=== PATIENT | female | born 1985 | race Caucasian/White ===

== ENCOUNTER 2020-03-30 06:16 | Inpatient (IN) ==
[2020-03-30] MEDS ORDERED: OXYTOCIN/0.9 % SODIUM CHLORIDE 30 UNITS/500 ML BAG IV ONE (06:28)
[2020-03-30] MEDS ORDERED: ONDANSETRON 4 MG TAB.RAPDIS PO PRN (06:28)
[2020-03-30] MEDS ORDERED: MISOPROSTOL 100 MCG TABLET VG PRN (06:28)
[2020-03-30] MEDS: RINGER'S SOLUTION,LACTATED 1,000 ML IV ONE ×2 (08:26→16:30)
--- NOTE | 2020-03-30 09:24 | HP ---
Chief Complaint - Chief Complaint Date of Service: 03/30/20 Time of Service: 08:45 Chief Complaint: medical induction of labor History of Present Illness: 34 yo at 39.1 weeks admitted for induction of labor due to GDM and AMA. This complicated by anemia, AMA, anxiety, Covid-19 (12/02/19), and recurrent UTIs. Rh positive Rubella immune GBS negative Medical History (Last Reviewed 03/30/20 @ 09:16 by Cristobal Carnes DO) Anemia affecting (Acute) Onset Date: 01/13/20 Urethral hypermobility (Acute) Urinary frequency (Acute) Urinary, incontinence, stress female (Acute) Encounter for well woman exam with abnormal findings (Acute) Vaginal discharge (Acute) Irregular menses (Acute) Binge eating (Acute) BMI 30.0-30.9,adult (Acute) Abnormal weight gain (Acute) COVID-19 Onset Date: 12/02/19 Gestational diabetes mellitus (GDM) Onset Date: ~01/17/20 Anxiety Onset Date: ~2017 Kidney infection Onset Date: ~11/2019 Heart palpitations Onset Date: ~12/13/18 Surgical History: Surgical History (Last Reviewed 03/30/20 @ 09:16 by Cristobal Carnes DO) [place] teeth removed Family History: Family History (Last Reviewed 03/30/20 @ 09:16 by Cristobal Carnes DO) Mother Diabetes Hypertension Grandfather Diabetes Maternal Grandmother , Maternal Lung cancer Aunt Colon cancer Maternal Social History: (Last Reviewed 03/30/20 @ 09:16 by Crsitobal Carnes DO) Social History: Marital status: household members: spouse, children current occupational status: employed current occupation: [employer] current occupational exposures/hazards: No Service: No Tobacco: Smoking Status: Never smoker Alcohol: alcohol intake: current details: Rare- none with Substance Use: substance use type: does not use Dietary Habits: caffeine: No Exercise: Physical activity type: none Personal Safety: victim of physical abuse: No victim of emotional abuse: No Review Of Systems (GEN) - Review of Systems Generalized/Overall Review: Present: No Symptoms Reported EENTM: Present: No Symptoms Reported Respiratory: Present: No Symptoms Reported Cardiac: Present: No Symptoms Reported Abdominal: Present: Other - contractions Genitourinary: Present: No Symptoms Reported Musculoskeletal: Present: No Symptoms Reported Neurological: Present: No Symptoms Reported Skin: Present: No Symptoms Reported Endocrine: Present: No Symptoms Reported Allergies/Adverse Reactions: Allergies Allergy/AdvReac Type Severity Reaction Status Date / Time No Known Allergies Allergy Verified 03/30/20 06:27 Home Medications: HOME MEDICATIONS Vits96/Iron Fum/Folic [ S] 1 tab PO DAILY 11/12/14 [Last Taken 03/30/20] ferrous sulfate 325 mg (65 mg iron) tablet 325 mg PO DAILY #30 tab 01/13/20 [Last Taken 03/29/20] blood sugar diagnostic See Rx Instructions .ROUTE .MEDSUPPLY #100 ea 01/17/20 [Last Taken 03/30/20 06:28] blood-glucose meter See Rx Instructions .ROUTE .MEDSUPPLY #1 ea 01/17/20 [Last Taken 03/30/20] lancets 28 gauge See Rx Instructions .ROUTE .MEDSUPPLY #100 ea 01/17/20 [Last Taken 03/30/20] cefuroxime axetil 250 mg tablet 250 mg PO QHS 30 Days #30 tab 02/13/20 [Last Taken 03/29/20] breast pump See Rx Instructions .ROUTE .MEDSUPPLY #1 ea 03/25/20 [Last Taken Unknown] Exam - Exam Vital Signs: Vital Signs - Last Taken Temp 36.1 C 03/30/20 08:37 Pulse 100 03/30/20 08:37 Resp 18 03/30/20 08:37 BP 109/73 03/30/20 08:37 Pulse Ox 99 03/30/20 08:37 Constitutional: Present: Alert, Oriented x3, Cooperative, No distress ENT Exam: Present: hearing grossly normal Neck: Present: trachea midline Breasts: Present: Exam deferred Respiratory: Present: lungs clear, no respiratory distress Cardiovascular/Chest: Present: normal peripheral pulses, regular rate, rhythm, no edema Abdomen: Present: soft, nontender, no rebound tenderness, other - gravid /Rectal: Present: Other - Cervix - 1/25/-2 Extremity: Present: no pedal edema, no calf tenderness Skin Exam: Present: normal color, warm/dry, skin rash Neurologic: Present: alert, normal mood/affect, oriented x 3 Appearance: Present: appropriate appearance, appropriate insight Eye contact: Present: cooperative, good eye contact Thoughts: Present: normal thought pattern, normal mood /affect Assessment/Plan - Assessment/Plan (1) Gestational diabetes Assessment: Admit for pitocin induction of labor (cytotec not used since patient zack too frequently - has been doing this for over 1 week without cervical change). Insulin drip and glucose monitoring per protocol. Problem: Acute Qualifiers: Gestational diabetes mellitus control: diet-controlled (2) Advanced maternal age (AMA) in Problem: Chronic (3) Anxiety Problem: Chronic (4) Anemia Problem: Acute Qualifiers: Anemia type: iron deficiency Iron deficiency anemia type: inadequate dietary iron intake Qualified Code(s): D50.8 - Other iron deficiency anemias (5) COVID-19 affecting in third trimester Problem: Resolved (6) BMI 34.0-34.9,adult Problem: Chronic
[2020-03-30] MEDS: DEXTROSE 5%-LACTATED RINGERS 1,000 ML IV PRN ×2 (10:05→17:29)
--- NOTE | 2020-03-30 12:41 | PN ---
Progess Note - Interim Date: 03/30/20 Time: 12:37 Narrative: 03/30/20 12:37 Patient rating her contractions as mild to moderate Vital signs stable. Blood sugar 93 at 1045. Pitocin at 2 mu/min. FHT: 130 baseline, reassuring contractions q 2-3 min Cervix: 1/40/-2, cervical Garcia bulb placed and inflated with 60 mL's of normal saline Impression: Intrauterine at 39 1/7 weeks induction of labor for gestational diabetes and advanced maternal age. Plan: Continue present plan 03/30/20 12:41
--- NOTE | 2020-03-30 16:39 | PN ---
Progess Note - Interim Date: 03/30/20 Time: 16:33 Narrative: 03/30/20 16:33 Patient rating contractions as mild to moderate Vital signs stable. Blood sugars ranging in the 60s to 90s. Pitocin at 1 mu/min. FHT: 120 baseline, reassuring contractions q 1-3 min Cervix: 5-6/80/-2, AROM-clear Impression: Intrauterine at 39-1/7 weeks induction of labor for gestational diabetes and advanced maternal age progressing well. Plan: Continue present plan
[2020-03-30] MEDS ORDERED: BUPIVACAINE HCL/0.9 % NACL/PF 250 ML EP PRN (16:56)
[2020-03-30] MEDS ORDERED: ONDANSETRON HCL/PF 2 MG/ML VIAL IV PRN ×2 (16:56→21:03)
[2020-03-30] MEDS ORDERED: NALOXONE HCL 1 MG/1 ML SYRG IV PRN ×2 (16:56→21:03)
[2020-03-30] MEDS ORDERED: fentaNYL CITRATE/PF 50 MCG/ML AMPUL IT SCH ×2 (17:00→21:15)
--- NOTE | 2020-03-30 17:21 | ANES ---
Anesthesia Pre Procedure Eval Vitals/Labs: Last Vital Signs Temp 36.1 C 03/30/20 08:37 Pulse 100 03/30/20 08:37 Resp 18 03/30/20 08:37 BP 109/73 03/30/20 08:37 Pulse Ox 99 03/30/20 08:37 HOME MEDICATIONS RX: Vits96/Iron Fum/Folic [ S] 1 tab PO DAILY 11/12/14 [Last Taken 03/30/20] ferrous sulfate 325 mg (65 mg iron) tablet 325 mg PO DAILY #30 tab 01/13/20 [Last Taken 03/29/20] blood sugar diagnostic See Rx Instructions .ROUTE .MEDSUPPLY #100 ea 01/17/20 [Last Taken 03/30/20 06:28] blood-glucose meter See Rx Instructions .ROUTE .MEDSUPPLY #1 ea 01/17/20 [Last Taken 03/30/20] lancets 28 gauge See Rx Instructions .ROUTE .MEDSUPPLY #100 ea 01/17/20 [Last Taken 03/30/20] cefuroxime axetil 250 mg tablet 250 mg PO QHS 30 Days #30 tab 02/13/20 [Last Taken 03/29/20] breast pump See Rx Instructions .ROUTE .MEDSUPPLY #1 ea 03/25/20 [Last Taken Unknown] Allergies/Adverse Reactions: Allergies Allergy/AdvReac Type Severity Reaction Status Date / Time No Known Allergies Allergy Verified 03/30/20 06:27 - Planned Procedure Planned Procedure: medical induction Medication List Reviewed:: Yes Allergies Verified: Yes Medical History (Last Reviewed 03/30/20 @ 17:20 by Mike Weber CRNA) Anemia affecting (Acute) Onset Date: 01/13/20 Urethral hypermobility (Acute) Urinary frequency (Acute) Urinary, incontinence, stress female (Acute) Encounter for well woman exam with abnormal findings (Acute) Vaginal discharge (Acute) Irregular menses (Acute) Binge eating (Acute) BMI 30.0-30.9,adult (Acute) Abnormal weight gain (Acute) COVID-19 Onset Date: 12/02/19 Gestational diabetes mellitus (GDM) Onset Date: ~01/17/20 Anxiety Onset Date: ~2017 Kidney infection Onset Date: ~11/2019 Heart palpitations Onset Date: ~12/13/18 Surgical History (Last Reviewed 03/30/20 @ 17:20 by Mike Weber CRNA) [place] teeth removed Family History (Last Reviewed 03/30/20 @ 17:20 by Mike Weber CRNA) Mother Diabetes Hypertension Grandfather Diabetes Maternal Grandmother , Maternal Lung cancer Aunt Colon cancer Maternal - Family Anesthesia History Family History:: no untoward family reactions to anesthesia, no familial bleeding tendencies, no family history of clotting disorders, no family history of premature - Airway/Neck/Teeth Within Normal Limits:: Yes Teeth Condition: intact Neck Exam: full range of motion Mallampatti Score: 2 Thyromental (T-M) distance: > 6 cm Mandibulo Hyoid distance: > 3 cm - Respiratory Respiratory Physical: lungs clear Sleep Apnea currently treated: No Sleep Apnea by current assessment: No - Cardiovascular Tolerate Activity: Fair Heart Sounds: S1 & S2, Regular - Gastrointestinal NPO since: pm - Anesthesia Assessment and Plan ASA Class: PS, II, E Anesthesia Type Plan: Epidural - CSE for labor analgesia.
--- NOTE | 2020-03-30 17:47 | ANES ---
Post Anesthesia Discharge - Transfer of Care Transfer of Care handoff given to nurse: Yes - Discharge from PACU Discharge from PACU when meets criteria: Yes - Comfortable post CSE.
--- NOTE | 2020-03-30 17:49 | ANES ---
Anesthesia Procedure Note Procedure Note: ANESTHESIA PROCEDURE NOTE Date of Procedure: 03/30/2020 Time of procedure: 1720. Performed by: JEFFREY Brito CRNA, MSN Country Singer: Luna Drew RN. Preprocedure diagnosis: Active labor, labor pain. Post procedure diagnosis: Same. Procedure:Epidural for labor analgesia L3-4. Indications: Labor pain. Findings: See below. Details of the procedure: The patient was placed on the side of the bed in sitting positionand prepped with DuraPrep then draped in a sterile fashion. Lidocaine 1% was infiltrated to the skin and subcutaneous tissues at the level of the L3-4 interspace. An 18-gauge Touhy needle was used to approach the epidural space with loss of resistance technique. Once loss of resistance was achieved a 27-gauge spinal needle was passed through the epidural needle and CSF was contacted. After CSF returned, 20 mcg of fentanyl was injected in the spinal needle was removed the epidural catheter was then threaded approximately 4 cm in the epidural needle was removed. The catheter was taped in place and after careful aspiration 3 mL of 1.5% lidocaine with 1-200,000 epinephrine was injected without change in maternal heart rate or sensorium. . EBL: Minimal. Fluids: N/A. Specimen: N/A. Post procedure condition: The patient tolerated the procedure well with good relief. No complications were noted. Thank you for this consultation. Mike Weber CRNA, ARNP, MSN
--- NOTE | 2020-03-30 17:53 | ANES ---
Post Anesthesia Assessment - Vital Signs Vitals: Last Vital Signs Temp 36.1 C 03/30/20 08:37 Pulse 100 03/30/20 08:37 Resp 18 03/30/20 08:37 BP 109/73 03/30/20 08:37 Pulse Ox 99 03/30/20 08:37 Airway Patency: Normal - Mental Status Level Of Consciousness: Awake, Alert, Appropriate - Pain Level Pain Score: 0 - N/V Assessment Nausea/Vomiting Presence: None Dehydration:: No
[2020-03-30] MEDS ORDERED: BUPIVACAINE HCL/PF 30 ML VIAL ONE (21:16)
[2020-03-30] MEDS ORDERED: BUPIVACAINE HCL/PF 30 ML VIAL EP SCH (21:45)
[2020-03-31] MEDS ORDERED: IBUPROFEN 800 MG TABLET ONE (01:11)
[2020-03-31] MEDS ORDERED: IBUPROFEN 800 MG TABLET PO PRN (01:12)
[2020-03-31] MEDS ORDERED: SENNOSIDES 8.6 MG TABLET PO PRN (01:12)
[2020-03-31] MEDS ORDERED: BENZOCAINE/MENTHOL 81 SPRAY CAN TP PRN (01:12)
[2020-03-31] MEDS ORDERED: HYDROCORTISONE 30 APPL TUBE TP PRN (01:12)
[2020-03-31] MEDS ORDERED: BISACODYL 10 MG SUPP.RECT RC PRN (01:12)
[2020-03-31] MEDS ORDERED: GLYCERIN/WITCH HAZEL LEAF 40 APPL BOX TP PRN (01:12)
[2020-03-31] MEDS ORDERED: OXYTOCIN/0.9 % SODIUM CHLORIDE 30 UNITS/500 ML BAG IV ONE (01:12)
[2020-03-31] MEDS ORDERED: NON-FORMULARY 1 DOSE DOSE (Breast Pump 0 UNIT) SCH (01:15)
--- NOTE | 2020-03-31 01:16 | OR ---
Operative Report - Dictated Report Narrative: Spontaneous vaginal delivery of vigorously crying viable female at 00 16 on 03/31/2020 with Apgars 8 and 9, weighing 3360 g in PAM position with left hand at face presentation. Cord clamping delayed approximately 1 minute Placenta delivered complete, intact, with three vessel cord Estimated blood loss: Less than 50 ml Anesthesia: Epidural Lacerations: Small first-degree vaginal laceration requiring no repair. History for History for Definition: * The number of deliveries resulting in a live the patient experienced prior to current hospitalization * The previous delivery of live twins or any live multiple gestation is considered one live event. *If primagravida or nulliparous is documented select zero for the number of previous live births. Live Events: Live Events: 3
[2020-03-31] MEDS: oxyCODONE HCL/ACETAMINOPHEN 1 TAB TABLET PO PRN ×5 (03:16→23:56)
[2020-03-31] MEDS: IBUPROFEN 800 MG TABLET PO PRN ×3 (07:20→20:35)
[2020-03-31] MEDS: FERROUS SULFATE 325 MG TABLET PO SCH ×2 (13:08→13:09)
[2020-03-31] MEDS: PRENATAL VITS96/IRON FUM/FOLIC 1 TAB TABLET PO SCH (13:09)
[2020-03-31] MEDS: DOCUSATE SODIUM 100 MG CAPSULE PO SCH ×2 (13:09→20:35)
[2020-04-01] MEDS ORDERED: DEXTROSE 4 GM/TAB BTL ONE (05:34)
[2020-04-01] MEDS: DEXTROSE 4 GM/TAB BTL PO STA (05:34)
[2020-04-01 05:56] LABS: Hematocrit 33.7 % (37.0-47.0); Hemoglobin 10.9 gm/dL (12.5-16.0); Mean Cell Volume 94.4 fl (78-100); Mean Corpuscular Hemoglobin 30.5 pg (27-31); Mean Corpuscular Hgb Conc 32.3 g/dl (32-36); Mean Platelet Volume 9.9 fl (8-12.5); Neutrophil # 11.7 K/mm3 (1.3-6.0); Neutrophil % 85.6 % (42-75.0); Platelet Count 114 K/mm3 (150-450); Red Blood Count 3.57 M/mm3 (4.2-5.4); Red Cell Distribution Width 13.5 % (11.5-14.0); White Blood Count 13.6 K/mm3 (4.0-10.5)
[2020-04-01 06:08] LABS: Albumin * 2.2 gm/dl (3.4-5.0); Anion Gap 11.2 mmol/L (6.8-13.8); BUN/Creatinine Ratio 8.5 (9.0-21.6); Bilirubin, Total 0.9 mg/dL (0.0-1.1); Ca. Corrected For Albumin 9.4 mg/dL (8.4-10.2); Calcium * 8.3 mg/dL (7.9-10.9); Carbon Dioxide 26.2 mmol/L (24-32.6); Potassium 4.4 mmol/L (3.4-4.6); Total Protein 5.6 gm/dL (6.2-8.2)
[2020-04-01 06:14] LABS: Random Urine Total Protein 72.6 mg/dL (0-12)
[2020-04-01] MEDS: IBUPROFEN 800 MG TABLET PO PRN ×3 (07:25→20:27)
[2020-04-01] MEDS: FERROUS SULFATE 325 MG TABLET PO SCH (10:00)
[2020-04-01] MEDS: DOCUSATE SODIUM 100 MG CAPSULE PO SCH ×2 (10:00→20:27)
[2020-04-01] MEDS: PRENATAL VITS96/IRON FUM/FOLIC 1 TAB TABLET PO SCH (10:00)
[2020-04-01] MEDS: oxyCODONE HCL/ACETAMINOPHEN 1 TAB TABLET PO PRN ×3 (10:05→20:27)
--- NOTE | 2020-04-01 15:18 | PN ---
Subjective - Date and Time Seen Date: 04/01/20 Time: 15:02 Subjective Narrative: Patient had a fasting hypoglycemic episode early this morning. Blood sugar was 54 and she was very symptomatic. Responded to glucose and high sugar snack. 1h PP BS was 96 and she has been assymptomatic since this am episode. Labs significant for plts 114k and Pr/Cr ratio of 359. Pt denies KIDD (had mild one at time of hypoglycemic episode), visual changes, epigastric pain, or edema. Objective - Review of Systems Generalized/Overall Review: Reports: No Symptoms Reported EENTM: Reports: No Symptoms Reported Respiratory: Reports: No Symptoms Reported Cardiac: Reports: No Symptoms Reported Abdominal: Reports: No Symptoms Reported Genitourinary Symptoms: Reports: No Symptoms Reported Musculoskeletal Complaints: Reports: No Symptoms Reported Neurological: Reports: No Symptoms Reported Skin: Reports: No Symptoms Reported Endocrine: Reports: No Symptoms Reported - Vitals Vitals: Last Vital Signs Temp 36.7 C 04/01/20 13:30 Pulse 108 H 04/01/20 13:30 Resp 20 04/01/20 13:30 BP 133/66 04/01/20 13:30 Pulse Ox 100 04/01/20 13:30 - Abnormal Lab Findings Abnormal Lab Findings: Abnormal Lab Results 04/01/20 04/01/20 04/01/20 Range/Units 05:42 05:55 05:55 WBC 13.6 H (4.0-10.5) K/mm3 RBC 3.57 L (4.2-5.4) M/mm3 Hgb 10.9 L (12.5-16.0) gm/dL Hct 33.7 L (37.0-47.0) % Plt Count 114 L (150-450) K/mm3 Immature Gran % (Auto) 0.60 H (0.001-0.429) % Immature Gran # (Auto) 0.08 H (0.000-0.0310) K/mm3 Neutrophils % 85.6 H (42-75.0) % Lymphocytes % 8.8 L (20-51) % Neutrophils # 11.7 H (1.3-6.0) K/mm3 Lymphocytes # 1.20 L (1.5-3.5) k/mm3 Chloride 108 H (97-106) mmol/L BUN/Creatinine Ratio 8.5 L (9.0-21.6) ALT 13 L (19-67) U/L Total Protein 5.6 L (6.2-8.2) gm/dL Albumin 2.2 L (3.4-5.0) gm/dl Ur Random Creatinine 202.1 H (60-200) mg/dL U Random Total Protein 72.6 H (0-12) mg/dL U [place] Prot/Creat Ratio 359 H (0-199) mg/gm - Exam Constitutional: Present: Alert, Oriented x3, Cooperative, No distress ENT Exam: Present: hearing grossly normal Breasts: Present: Exam deferred Respiratory: Present: no respiratory distress Cardiovascular/Chest: Present: tachycardia - mild 100-110 Abdomen: Present: soft, nontender, no rebound tenderness /Rectal: Present: Other - Uterus firm, NT. Lochia WNL Extremity: Present: no calf tenderness, lower extremity edema - 1+, other - DTR 3/4, no clonus Skin Exam: Present: normal color, warm/dry, no cyanosis Neurologic: Present: no motor/sensory deficits, alert, normal mood/affect, oriented x 3 Appearance: Present: appropriate appearance, appropriate insight Eye contact: Present: cooperative, good eye contact Thoughts: Present: normal thought pattern, normal mood /affect Cauti Physician Documentation - Urinary Catheter Management Urethral (Garcia) Date of Insertion: 03/30/20 Time of Insertion: 18:05 Assessment/Plan Plan Narrative: Unsure of etiology for hypoglycemic episode since patient is not on any hypoglycemic meds. Will get IM consult and continue routine PP management with close watch on BP and BS. - Problems/Diagnosis (1) Normal vaginal delivery Problem: Resolved (2) Hypoglycemic reaction Problem: Resolved (3) Gestational diabetes Problem: Acute Qualifiers: Gestational diabetes mellitus control: diet-controlled (4) Advanced maternal age (AMA) in Problem: Chronic (5) Anxiety Problem: Chronic (6) Anemia Problem: Acute Qualifiers: Anemia type: iron deficiency Iron deficiency anemia type: inadequate dietary iron intake Qualified Code(s): D50.8 - Other iron deficiency anemias (7) COVID-19 affecting in third trimester Problem: Resolved (8) BMI 34.0-34.9,adult Problem: Chronic
[2020-04-02 03:00] LABS: Hematocrit 31.6 % (37.0-47.0); Hemoglobin 10.3 gm/dL (12.5-16.0); Mean Cell Volume 92.7 fl (78-100); Mean Corpuscular Hemoglobin 30.2 pg (27-31); Mean Corpuscular Hgb Conc 32.6 g/dl (32-36); Mean Platelet Volume 10.1 fl (8-12.5); Neutrophil # 6.6 K/mm3 (1.3-6.0); Platelet Count 123 K/mm3 (150-450); Red Blood Count 3.41 M/mm3 (4.2-5.4); Red Cell Distribution Width 13.4 % (11.5-14.0); White Blood Count 8.6 K/mm3 (4.0-10.5)
[2020-04-02 03:13] LABS: Anion Gap 12.1 mmol/L (6.8-13.8); BUN/Creatinine Ratio 11.1 (9.0-21.6); Bilirubin, Total 0.7 mg/dL (0.0-1.1); Ca. Corrected For Albumin 9.6 mg/dL (8.4-10.2); Calcium * 8.3 mg/dL (7.9-10.9); Carbon Dioxide 25.6 mmol/L (24-32.6); Potassium 3.7 mmol/L (3.4-4.6); Total Protein 5.4 gm/dL (6.2-8.2)
[2020-04-02] MEDS: DEXTROSE 4 GM/TAB BTL PO STA (03:14)
[2020-04-02] MEDS: IBUPROFEN 800 MG TABLET PO PRN ×2 (03:45→10:44)
[2020-04-02] MEDS: oxyCODONE HCL/ACETAMINOPHEN 1 TAB TABLET PO PRN (03:46)
[2020-04-02 07:24] VITALS: BP 114/71
--- NOTE | 2020-04-02 09:15 | PN ---
Subjective - Date and Time Seen Date: 04/02/20 Time: 09:11 Objective - Vitals Vitals: Last Vital Signs Temp 36.3 C 04/02/20 07:23 Pulse 100 04/02/20 07:23 Resp 18 04/02/20 07:23 BP 114/71 04/02/20 07:23 Pulse Ox 98 04/02/20 07:23 Patient had another hypoglycemic episode around 2 AM which responded well to glucose tabs and sugary diet. Breast-feeding well. Lochia wnl abdomen - soft, nontender Uterus -firm, at umbilicus - 2 No calf tenderness Impression: day #2 - s/p spontaneous vaginal delivery. Gestational diabetes-resolved but now experiencing multiple hypoglycemic episodes. Plan: Routine discharge instructions. I consulted Dr. Carrera yesterday regarding the hypoglycemic episodes. She recommended getting hypoglycemic lab work-up if patient had another episode which did occur this morning and so labs were drawn. In the meantime while waiting for lab results to return, patient was instructed to follow a hypoglycemic diet and avoid excess sugary foods. - Abnormal Lab Findings Abnormal Lab Findings: Abnormal Lab Results 04/02/20 04/02/20 Range/Units 02:45 02:45 RBC 3.41 L (4.2-5.4) M/mm3 Hgb 10.3 L (12.5-16.0) gm/dL Hct 31.6 L (37.0-47.0) % Plt Count 123 L (150-450) K/mm3 Immature Gran % (Auto) 0.80 H (0.001-0.429) % Immature Gran # (Auto) 0.07 H (0.000-0.0310) K/mm3 Neutrophils % 77.0 H (42-75.0) % Lymphocytes % 14.4 L (20-51) % Neutrophils # 6.6 H (1.3-6.0) K/mm3 Lymphocytes # 1.24 L (1.5-3.5) k/mm3 Random Glucose 64 L D (70-110) mg/dL ALT 17 L (19-67) U/L Total Protein 5.4 L (6.2-8.2) gm/dL Albumin 2.0 L (3.4-5.0) gm/dl Cauti Physician Documentation - Urinary Catheter Management Urethral (Garcia) Date of Insertion: 03/30/20 Time of Insertion: 18:05 Assessment/Plan - Problems/Diagnosis (1) Normal vaginal delivery Problem: Resolved (2) Hypoglycemic reaction Problem: Resolved (3) Gestational diabetes Problem: Acute Qualifiers: Gestational diabetes mellitus control: diet-controlled (4) Advanced maternal age (AMA) in Problem: Chronic (5) Anxiety Problem: Chronic (6) Anemia Problem: Acute Qualifiers: Anemia type: iron deficiency Iron deficiency anemia type: inadequate dietary iron intake Qualified Code(s): D50.8 - Other iron deficiency anemias (7) COVID-19 affecting in third trimester Problem: Resolved (8) BMI 34.0-34.9,adult Problem: Chronic
[2020-04-02] MEDS: FERROUS SULFATE 325 MG TABLET PO SCH (10:44)
[2020-04-02] MEDS: PRENATAL VITS96/IRON FUM/FOLIC 1 TAB TABLET PO SCH (10:44)
[2020-04-02] MEDS: DOCUSATE SODIUM 100 MG CAPSULE PO SCH (10:44)
--- NOTE | 2020-04-02 12:06 | DS ---
OB Discharge Summary (1) Normal vaginal delivery Status: Resolved (2) Hypoglycemic reaction Status: Acute (3) Gestational diabetes Status: Acute Qualifiers: Gestational diabetes mellitus control: diet-controlled (4) Advanced maternal age (AMA) in Status: Chronic (5) Anxiety Status: Chronic (6) Anemia Status: Chronic Qualifiers: Anemia type: iron deficiency Iron deficiency anemia type: inadequate dietary iron intake Qualified Code(s): D50.8 - Other iron deficiency anemias (7) COVID-19 affecting in third trimester Status: Resolved (8) BMI 34.0-34.9,adult Status: Chronic Delivery Date: 03/31/20 Delivery Time: 00:16 :: 4 Para:: 4 Gestational weeks:: 39 Gestational days:: 2 Intrapartum Procedures: Spontaneous Vaginal Delivery, Delivered, Anesthesia - Epidural /OP Complications: GDM, Other - recurrent hypogylcemic episodes Discharge Diagnosis: Term -Delivered, GDM - Oral Dependent, Rubella Immune, Other - hypoglycemic episodes - Discharge Information Date of Discharge: 04/02/20 Hospital Course: 34-year-old 4 para 3 admitted at 39 weeks 1 day for induction of labor due to gestational diabetes and advanced maternal age. Throughout labor patient's blood sugars were checked every 1-2 hours. Blood sugars remained well controlled throughout labor. She required supplementation with IV D5 LR and clear liquids to maintain blood sugars above 70. She had a normal spontaneous vaginal delivery of a female at 0016 on 03/30/2020. course was complicated by supervisor pastry hypoglycemic episodes which responded to oral glucose. Phone consultation with internal medicine for hypoglycemic episodes was made. Recommendation was to draw hypoglycemic labs. Labs are drawn after second episode and patient was discharged on day 2 with instructions to avoid excess sugar. She was given handouts and instructed to follow hypoglycemic diet. She is to call if she has any further hypoglycemic episodes, questions, or concerns. Discharge Location: Home Disposition: Home self-care Condition: Good Referrals: Karl Becerra ARNP [Primary Care Provider] - Activity on Discharge:: Activity as tolerated, Pelvic Rest Discharge Diet: General/regular food, Consistent carbs, Other - hypoglycemic diet Additional Patient Instructions (free text): Quinn dunbar have an appointment with Dr. Carnes on May 11 at 10:15 AM. Shante has an appointment tomorrow with Dr. Schwartz at 2:30. Shante weight today was 7lbs 0.7. Her bili level is 9.3 at 52 hours of life. Her blood type A+ She has passed her hearing screen, her CHD screen and her metabolic screen has been completed. Please continue to feed Shante on demand or every 2-3 hours. Please always lay her on her back to sleep with no loose blankets or stuffed animals in sleeping space. Thank you for choosing [facility] for your special delivery. Please never hesitate to call if you have any questions or concerns. [facility] [phone] [facility] [phone] [facility] [phone] Complete Home Medications List: Complete Home Medication List: Vits96/Iron Fum/Folic [ S] 1 tab PO DAILY 11/12/14 ferrous sulfate 325 mg (65 mg iron) tablet 325 mg PO DAILY #30 tab 01/13/20 blood sugar diagnostic See Rx Instructions .ROUTE .MEDSUPPLY #100 ea 01/17/20 blood-glucose meter See Rx Instructions .ROUTE .MEDSUPPLY #1 ea 01/17/20 lancets 28 gauge See Rx Instructions .ROUTE .MEDSUPPLY #100 ea 01/17/20 cefuroxime axetil 250 mg tablet 250 mg PO QHS 30 Days #30 tab 02/13/20 breast pump See Rx Instructions .ROUTE .MEDSUPPLY #1 ea 03/25/20 - Plan Discharge to:: Home Follow up in office in:: 3-4 weeks - Information Weight (Grams): 3,360 Infant Sex: Male Score 1 min: 8 Score 5 min: 9 Circumcision: Not Applicable Infant Complications: None
[2020-04-09 03:09] LABS: Insulin 2.7 uIU/mL
== END 2020-04-02 15:00 | disposition home or self-care (01) | DRG 805 ==
LOC: OB 06:16
PROVIDERS: ADMIT Obstetrics & Gynecology; ATTEND Obstetrics & Gynecology